=== PATIENT | female | born 1995 | race Caucasian/White ===

== ENCOUNTER 2016-11-06 22:42 | Emergency (ER) | payer OTHER ==
[2016-12-03 18:00] VITALS: BMI 37.1
== END 2016-11-07 00:39 | disposition home or self-care (01) ==
LOC: D.ER 22:42
DX: S91.032A Puncture wound without foreign body, left ankle, initial encounter (principal); W45.8XXA Other foreign body or object entering through skin, initial encounter; Y93.89 Activity, other specified; Y92.019 Unspecified place in single-family (private) house as the place of occurrence of the external cause

== ENCOUNTER 2016-12-03 11:14 | Day surgery (SDC) | payer OTHER ==
[~2016-12-03] VITALS: Ht 162.6 cm; Wt 98.2 kg
[2016-12-03 12:00] LABS: BASOPHILS 0.3 % (0.0-2.0); EOSINOPHILS 1.7 % (0-7); HEMATOCRIT 42.1 % (36.0-48.0); IMMATURE GRANULOCYTES 0.5 % (0-5); LYMPHOCYTES 25.7 % (15-50); MCHC 33.3 g/dL (31.0-37.0); MCV 90.1 fL (80.0-100.0); MONOCYTES 7.3 % (2-11); NEUTROPHILS 64.5 % (40-80); PLATELET COUNT 263 10x3/uL (130-400); RBC 4.67 10x6/uL (4.00-5.40); RDW 13.4 % (11.5-14.5); WBC 11.9 10x3/uL (4.8-10.8)
[2016-12-03 12:17] LABS: APPEARANCE HAZY (CLEAR); BILIRUBIN NEGATIVE (NEGATIVE); COLOR YELLOW (YELLOW); GLUCOSE NEGATIVE (NEGATIVE); KETONE NEGATIVE (NEGATIVE); LEUKOCYTE ESTERASE TRACE (NEGATIVE); NITRITE NEGATIVE (NEGATIVE); PROTEIN NEGATIVE (NEGATIVE); SPECIFIC GRAVITY 1.025 (1.005-1.020)
[2016-12-03 12:18] LABS: ALBUMIN 3.5 g/dL (3.4-5.0); ALT (SGPT) 26 U/L (10-68); CALC OSMOLALITY 277 mosm/kg (275-300); CALCIUM 8.6 mg/dL (8.5-10.1); CARBON DIOXIDE 31.7 mmol/L (21.0-32.0); CHLORIDE - SERUM 104 mmol/L (98-107); CREATININE - SERUM 0.9 mg/dL (0.6-1.3); GLUCOSE 88 mg/dL (74-106); POTASSIUM - SERUM 4.2 mmol/L (3.5-5.1); SODIUM 139 mmol/L (136-145); UREA NITROGEN 14 mg/dL (7-18); eGFR NON AFRICAN AMERICAN 82 mL/min (90-120)
[2016-12-03 12:19] LABS: BACTERIA MANY /hpf (NONE SEEN); RED CELLS - URINE 0-5 /hpf (0-5); WHITE CELLS - URINE 0-5 /hpf (0-5)
[2016-12-03 12:21] LABS: ALKALINE PHOSPHATASE 19 U/L (46-116); BILIRUBIN - TOTAL 0.84 mg/dL (0.2-1.3); PROTEIN - SERUM 5.5 g/dL (6.4-8.2)
[2016-12-03 12:50] LABS: HCG SERUM NEGATIVE (NEGATIVE)
[2016-12-03 18:00] VITALS: BP 112/71; Ht 162.6 cm; Wt 98.2 kg
--- NOTE | 2016-12-03 19:40 | NUR ---
PT RESTING QUIETLY WITH EYES CLOSED, RESP EVEN AND UNLABORED ON ROOM AIR, NO S/S OF DISTRESS NOTED. PARTENER AT BEDSIDE-DENIES ANY NEEDS AT THIS TIME. BED IN LOWEST POSITION, CALL LIGHT IN REACH, ASSESSMENT PER FLOWSHEET.
[2016-12-03 20:00] VITALS: BP 115/65
--- NOTE | 2016-12-03 21:22 | NUR ---
PT LOP 03/27. MEDICATION ADMINISTERED PER ORDER. HAD TO OVERRIDE IN HECTOR PECK RN WITNESSED.
[2016-12-04 00:52] VITALS: BP 96/57
--- NOTE | 2016-12-04 04:04 | NUR ---
PT RESTING QUIETLY, AGREE WITH WAITER AND CASHIER ASSESSMENT. WAITER AND CASHIER TO CONTINUE CARE.
[2016-12-04 05:36] LABS: BASOPHILS 0.2 % (0.0-2.0); HEMATOCRIT 38.5 % (36.0-48.0); HEMOGLOBIN 12.6 g/dL (12-16); IMMATURE GRANULOCYTES 0.4 % (0-5); LYMPHOCYTES 46.5 % (15-50); MCH 29.6 pg (26.0-34.0); MCHC 32.7 g/dL (31.0-37.0); MCV 90.4 fL (80.0-100.0); MEAN PLATELET VOLUME 11.4 fL (7.4-10.4); MONOCYTES 8.2 % (2-11); NEUTROPHILS 42.7 % (40-80); PLATELET COUNT 245 10x3/uL (130-400); RBC 4.26 10x6/uL (4.00-5.40); RDW 13.4 % (11.5-14.5)
[2016-12-04 05:40] VITALS: BP 104/64
[2016-12-04 05:48] LABS: CALC OSMOLALITY 271 mosm/kg (275-300); CALCIUM 8.2 mg/dL (8.5-10.1); CARBON DIOXIDE 26.9 mmol/L (21.0-32.0); CHLORIDE - SERUM 105 mmol/L (98-107); CREATININE - SERUM 0.8 mg/dL (0.6-1.3); GLUCOSE 81 mg/dL (74-106); POTASSIUM - SERUM 4.2 mmol/L (3.5-5.1); SODIUM 137 mmol/L (136-145); WBC 8.1 10x3/uL (4.8-10.8); eGFR NON AFRICAN AMERICAN > 90 mL/min (90-120)
[2016-12-04 06:01] LABS: UREA NITROGEN 10 mg/dL (7-18)
--- NOTE | 2016-12-04 07:10 | NUR ---
PATIENT RECEIVED IN LEFT LATERAL POSITION RESTING WITH EYES CLOSED. RESPIRATIONS EVEN AND UNLABORED. BED IN LOW POSITION. CALL LIGHT IN REACH. FAMILY PRESENT.
[2016-12-04 08:06] VITALS: BP 104/49
--- NOTE | 2016-12-04 09:20 | NUR ---
PATIENT IN LOW [place] POSITION RESTING WITH EYES CLOSED. RESPIRATIONS EVEN AND UNLABORED. WAKES EASY. FAMILY PRESENT AND REPORTS ALL SHE HAD WAS THE JELLO ON HER TRAY THIS MORNING. SIDE RAILS UP X1. BED IN LOW POSITION. CALL LIGHT IN REACH.
--- NOTE | 2016-12-04 11:20 | NUR ---
ALERT IN BED EATING JELLO. TOLERATING WELL. RATES PAIN 5/10. DENIES NEED FOR PAIN MEDICATION. SIDE RAILS UP X2. BED IN LOW POSITION. CALL LIGHT IN REACH. FAMILY PRESENT.
[2016-12-04 12:40] VITALS: BP 123/71
--- NOTE | 2016-12-04 15:25 | NUR ---
UP AMBULATING IN HALLWAY WITHOUT ASSIST. NO SIGNS OF DISTRESS NOTED. WILL CONTINUE TO MONITOR.
[2016-12-04 16:02] VITALS: BP 116/58
--- NOTE | 2016-12-04 17:35 | NUR ---
ALERT IN BED WATCHING TV. RESPIRATIONS EVEN AND UNLABORED. DENIES PAIN AND OTHER NEEDS. BED IN LOW POSITION. CALL LIGHT IN REACH.
[2016-12-04 19:00] VITALS: BP 127/57
--- NOTE | 2016-12-04 20:00 | NUR ---
ASSESSMENT PER FLOWSHEET. IV PATENT RT AC OF NS AT 50CC'S/HR SITE CLEAR. DENIES PAIN OR DISCOMFORT. SR UP X2 CALL LIGHT WITHIN REACH.
--- NOTE | 2016-12-04 23:00 | NUR ---
MEDS GIVEN PER MAR.
[2016-12-05] VITALS: BP 118/32
--- NOTE | 2016-12-05 02:28 | NUR ---
EYES CLOSED RESPIRATIONS WITH EASE AND UNLABORED.
[2016-12-05 04:00] VITALS: BP 117/61
--- NOTE | 2016-12-05 07:00 | NUR ---
PT. WAS RECEIVED AT THE BEGINNING OF THIS SHIFT IN BED WITH EYES CLOSED. BREATHING IS EASY AND UNLABORED. RT. AC IV WITH NS GOING AT 50ML'S/HR VIA PUMP. NO SIGNS OF ANY DISCOMFORT OR DISTRESS. WILL BE MONITORING HER THROUGHOUT THIS SHIFT AND ASSISTING PRN WITH ADL'S. CALL LIGHT IS IN REACH.
[2016-12-05 08:12] VITALS: BP 100/70; BP 153/86
[2016-12-05 12:04] VITALS: BP 120/66
[2016-12-05] MEDS ORDERED: FLAGYL500 MG PO (13:41)
[2016-12-05] MEDS ORDERED: CIPRO500 MG PO (13:41)
[2016-12-05 15:59] VITALS: BP 125/72
--- NOTE | 2016-12-05 16:11 | NUR ---
PT. WAS DISCHARGED HOME VIA FRIEND. SHE WAS STABLE UPON DISCHARGING HOSPITAL. IV WAS TAKEN OUT OF PT. PT. WAS GIVEN HER DISCHARGE PAPERWORK AND PERSONAL BELONGINGS TO TAKE WITH HER. SHE WAS WHEELED OUT TO AWAITING CAR.
--- NOTE | 2016-12-16 13:21 | DS ---
PATIENT:MANISH JAIN :89 MEDICAL RECORD: [id number] DISCHARGE SUMMARY ADMISSION DATE: 12/03/16 DISCHARGE DATE: 12/05/16 DATE OF ADMISSION: 12/03/2016 DATE OF DISCHARGE: 12/05/2016 ADMISSION DIAGNOSES: Right lower quadrant pain, rule out appendicitis. DISCHARGE DIAGNOSIS: Right lower quadrant pain likely gastroenteritis. PROCEDURE: None. CONSULTATIONS: None. REPORT OF HOSPITALIZATION: The patient was admitted to the hospital with colicky right lower quadrant pain for the last week. The patient was noted to have a mildly elevated white count of 11.[address] scan, which was essentially normal with a clearly visible appendix with no fat stranding measuring about 5.5 mm. The patient was admitted to the hospital for rule out appendicitis. Her UA appeared to show evidence of a UTI, but subsequent urine culture showed no evidence of this. The patient had been placed on IV antibiotics and over the next 2 days, she had steady improvement. On the day of discharge, her abdominal pain had completely resolved. She was tolerating a diet with no further nausea or vomiting and she felt to be stable for discharge home at that point. She never had any fever throughout her hospitalization and her white count was normal. DISCHARGE INSTRUCTIONS: Return to clinic or call with any questions or concerns, fevers, chills, nausea, vomiting or worsening abdominal pain. ACTIVITIES: As tolerated. FOLLOWUP: P.r.n. DISCHARGE MEDICATIONS: Cipro 500 mg b.i.d. for 1 week and Flagyl 500 mg t.i.d. for 1 week. TRANSINT:[id number] Voice Confirmation ID: [id number] DOCUMENT ID: [id number] LEWIS PERRY MD at 1321 CC: [id number] DICTATION DATE: 12/05/16 1344 GENERAL OPERATIONS MANAGER: 12/06/16 0639 [facility] 12/05/16 [place] [id number]
== END 2016-12-05 16:16 | disposition home or self-care (01) ==
LOC: OBSVTIME → D.ER 11:14 → D.OPS 15:22 → D.MS 15:22 → D.ER 16:09 → OBSVTIME 16:09 → D.MS 16:09 → D.OPS 12-05 16:16 → D.MS 12-05 16:16
PROVIDERS: Emergency Medicine; Surgery
DX: K52.9 Noninfective gastroenteritis and colitis, unspecified (principal); Z79.2 Long term (current) use of antibiotics; Z88.8 Allergy status to other drugs, medicaments and biological substances

== ENCOUNTER 2018-02-20 16:50 | Emergency (ER) | payer OTHER ==
[~2018-02-20] VITALS: Ht 162.6 cm; Wt 95.5 kg
[~2018-02-20 16:50] MED LIST: CIPRO500 MG PO; FLAGYL500 MG PO
[2018-02-20 17:10] VITALS: Ht 162.6 cm; Wt 95.5 kg
[2018-02-20] MEDS ORDERED: NORCO 7.5/325 T1 TA1 PO (17:35)
[2018-02-20] MEDS ORDERED: CLEOCIN HCL300 MG PO (17:35)
[2018-02-20 18:12] VITALS: BP 136/78
== END 2018-02-20 18:13 | disposition home or self-care (01) ==
LOC: D.ER 16:50
DX: K04.7 Periapical abscess without sinus (principal); F17.200 Nicotine dependence, unspecified, uncomplicated